=== PATIENT | male | born 1955 | race Caucasian/White ===

== ENCOUNTER → 2024-04-19 18:28 | Outpatient (REF) | payer BC, SELFPAY | LOC: RAD 18:28 | PROVIDERS: ATTENDING PHYSICIAN Family Medicine | DX: M25.512 Pain in left shoulder (principal) | CPT/HCPCS: 73030 ==

== ENCOUNTER 2025-04-17 06:15 | Day surgery (SDC) | payer BC, SELFPAY | END 2025-04-17 08:50 | disposition home or self-care (01) | LOC: GI 06:15 | PROVIDERS: ATTENDING PHYSICIAN Specialist; FAMILY PHYSICIAN Family Medicine | DX: Z12.11 Encounter for screening for malignant neoplasm of colon (principal); K57.30 Diverticulosis of large intestine without perforation or abscess without bleeding; D12.0 Benign neoplasm of cecum | CPT/HCPCS: 45385; 88305 ==